=== PATIENT | female | born 1980 | race Caucasian/White ===

== ENCOUNTER 2016-05-26 06:00 | Inpatient (IN) | payer OTHER ==
[2016-05-26] MEDS ORDERED: LR 1,000 ML IV PRN (06:52)
[2016-05-26] MEDS ORDERED: EPSOM SALT 454 GM TP PRN (06:52)
[2016-05-26] MEDS ORDERED: MINERAL OIL 60 ML OIL TP PRN (06:52)
[2016-05-26] MEDS ORDERED: TERBUTALINE SULFATE 1 MG/ML VIAL IV PRN (06:52)
[2016-05-26] MEDS ORDERED: OXYTOCIN/RINGERS LACTATE 1,000 ML IV PRN (06:52)
[2016-05-26] MEDS ORDERED: LIDOCAINE 1% 30 ML SDV SC PRN (06:52)
[2016-05-26 07:06] LABS: % IMMATURE GRANULYOCYTES 0.7 % (0.0-1.1); ABSOLUTE IMMATURE GRANULOCYTES 0.05 10^3/uL (0.00-0.10); ADD DIFF? NO; ADD MORPH? NO; ADD SCAN? NO; ATYPICAL LYMPHOCYTE FLAG 10 (0-99); FRAGMENT RBC FLAG 0 (0-99); HEMATOCRIT 34.4 % (38.0-47.0); HEMOGLOBIN 11.8 g/dL (12.6-16.3); LEFT SHIFT FLG 0 (0-99); LIPEMIA HEMOLYSIS FLAG 90 (0-99); MEAN CELL HEMOGLOBIN 29.8 pg (27.9-34.1); MEAN CELL HEMOGLOBIN CONCENTR. 34.3 g/dL (32.4-36.7); MEAN CELL VOLUME 86.9 fL (81.5-99.8); MEAN PLATELET VOLUME 10.4 fL (8.7-11.7); PLATELET CLUMPS FLAG 10 (0-99); PLATELET COUNT 222 10^3/uL (150-400); RED BLOOD CELL COUNT 3.96 10^6/uL (4.18-5.33); RED CELL DISTRIBUTION WIDTH 13.9 % (11.5-15.2)
[2016-05-26] MEDS ORDERED: LIDOCAINE 1% 30 ML SDV ONE (07:20)
[2016-05-26] MEDS ORDERED: TERBUTALINE SULFATE 1 MG/ML VIAL ONE (07:21)
[2016-05-26] MEDS ORDERED: AMMONIA AROMATIC 1 EACH AMP IH ONE (07:21)
[2016-05-26] MEDS ORDERED: MISOPROSTOL 200 MCG TAB ONE (07:21)
[2016-05-26] MEDS ORDERED: OXYTOCIN 10 UNIT/ML VIAL ONE (07:21)
[2016-05-26] MEDS ORDERED: OXYTOCIN/LR *STANDARD DOSE PROTOCOL IV SCH (07:30)
[2016-05-26] MEDS ORDERED: fentaNYL 2MCG/ML/BUP 0.1% RTU 100 ML BAG EP ONE (09:31)
[2016-05-26] MEDS ORDERED: fentaNYL 100 MCG/2 ML INJ ONE (09:31)
[2016-05-26] MEDS ORDERED: BUPIVACAINE 0.25% 30 ML SDV ONE (09:32)
[2016-05-26] MEDS ORDERED: PHENYLEPHRINE HCL 100 MCG/ML SYR ONE (09:32)
--- NOTE | 2016-05-26 10:16 | OBPROG ---
OBG Progress Note Assessment/Plan: Assessment: 35 yo @ 39 2/7, elective IOL, comfortable. Plan: 05/26/16 10:15 FWB reassuring. GBS neg. Expect . Subjective: 35 yo @ 39 2/7, elective IOL, comfortable. Objective: 05/26/16 06:30 Patient ABO/Rh A POSITIVE 05/26/16 06:30 VSS - SVE Dilation (cm): 4 Effacement (%): 50 Station: -1 Current Contraction Pattern: Regular FHR (bpm): 130 FHR Pattern Variability: Moderate FHR Category: 2 Membranes: AROM Amniotic Fluid Color: Clear ICD10 Worksheet Patient Problems: Problems Problem Status Diagnosed Unstable lie of fetus Acute
[2016-05-26] MEDS ORDERED: LR 500 ML IV SCH (10:30)
--- NOTE | 2016-05-26 12:35 | OBPROG ---
OBG Progress Note Assessment/Plan: Assessment: 35 yo @ 39 2/7, elective IOL, comfortable. Plan: FWB reassuring. GBS neg. Expect . 05/26/16 12:34 Subjective: 35 yo @ 39 2/7, elective IOL, comfortable. Objective: 05/26/16 06:30 Patient ABO/Rh A POSITIVE 05/26/16 06:30 vss - SVE Dilation (cm): 7 Effacement (%): 75 Station: -1 Current Contraction Pattern: Regular FHR (bpm): 140 FHR Pattern Variability: Moderate FHR Category: 2 Membranes: AROM Amniotic Fluid Color: Clear ICD10 Worksheet Patient Problems: Problems Problem Status Diagnosed Unstable lie of fetus Acute
[2016-05-26] MEDS: IBUPROFEN 600 MG TAB PO PRN ×2 (15:27→21:02)
[2016-05-26] MEDS ORDERED: HYDROCORTISONE 0.5% CREAM TP PRN (16:23)
[2016-05-26] MEDS ORDERED: DOCUSATE SODIUM 100 MG CAP PO PRN (16:23)
[2016-05-26] MEDS ORDERED: SIMETHICONE 80 MG TAB CHEW PO PRN (16:23)
--- NOTE | 2016-05-26 16:26 | OBPROC ---
- Labor and Delivery Onset of Contractions Date: 05/26/16 Onset of Contractions Time: 08:00 Onset of Contractions Type: Induced Rupture of Membranes Date: 05/26/16 Rupture of Membranes Time: 08:45 Rupture of Membranes Type: Artificial Amniotic Fluid Color: Clear Dilation Complete Time: 14:30 Delivery Type: Spontaneous Placenta Delivery Date: 05/26/16 Episiotomy/Laceration: 2nd Degree Repair: 3-0, Vicryl EBL: 200 ml Complications: None - Medications Labor Augmentation/Induction Meds Used: Pitocin Anesthesia: Epidural - Info Infant A Delivery Date: 05/26/16 Delivery Time: 14:49 Sex of : Female Score (1 Min): 9 Score (5 Min): 9
[2016-05-26] MEDS: HYDROCODONE/APAP 5/325 TAB PO PRN (22:18)
[2016-05-27] MEDS: HYDROCODONE/APAP 5/325 TAB PO PRN ×2 (03:42→08:04)
[2016-05-27] MEDS: IBUPROFEN 600 MG TAB PO PRN ×2 (08:04→15:12)
[2016-05-27 08:06] VITALS: BP 116/72; PULSE 64; RESP 16; TEMP 98.1; O2SAT 96
--- NOTE | 2016-05-27 08:33 | OBPROG ---
OBG Progress Note Assessment/Plan: Assessment: Pt is a 35 y/o female PPD#1 s/p - doing well and stable for discharge Plan: Discharge home (desired) A+, [place] F/U in 6 weeks or sooner prn RX for motrin and norco given. Pain/bleeding/fever precautions reviewed 05/27/16 08:31 Subjective: No complaints, feels great, lochia diminishing, pain controlled with motrin, desires to go home. Colostrum coming in well. Objective: 05/26/16 06:30 Patient ABO/Rh A POSITIVE 05/26/16 06:30 Temp Pulse Resp BP Pulse Ox 36.7 C 64 16 116/72 96 05/27/16 08:00 05/27/16 08:00 05/27/16 08:00 05/27/16 08:00 05/27/16 08:00 Uterine Position/Fundal Height: Umbilicus -1 Uterine Tone: Firm ICD10 Worksheet Patient Problems: Problems Problem Status Diagnosed (spontaneous vaginal delivery) Acute Unstable lie of fetus Acute - ICD10 Problem Qualifiers (1) (spontaneous vaginal delivery)
== END 2016-05-27 15:45 | disposition home or self-care (01) | DRG 775 ==
LOC: FLD 06:00 → FOB 17:03
PROVIDERS: ADMIT Midwife; ATTEND Obstetrics & Gynecology
PROC: 0KQM0ZZ Repair Perineum Muscle, Open Approach (ICD-10-PCS; principal; 2016-05-26)
PROC: 10E0XZZ Delivery of Products of Conception, External Approach (ICD-10-PCS; principal; 2016-05-26)
PROC: 10907ZC Drainage of Amniotic Fluid, Therapeutic from Products of Conception, Via Natural or Artificial Opening (ICD-10-PCS; principal; 2016-05-26)
DX: O70.1 Second degree perineal laceration during delivery (principal); O62.2 Other uterine inertia; Z3A.39 39 weeks gestation of pregnancy; Z37.0 Single live birth
CPT/HCPCS: J2370; J2590; J3010; J3105

== ENCOUNTER 2018-02-27 22:41 | Emergency (ER) | payer OTHER ==
[2018-02-27] MEDS ORDERED: KETOROLAC 15 MG/1 ML SDV IVP ONE (22:56)
[2018-02-27] MEDS ORDERED: NS 1,000 ML IV ONE ×2 (22:56→23:44)
[2018-02-27] MEDS ORDERED: FAMOTIDINE 20 MG/NACL 50 ML IV ONE (22:57)
--- NOTE | 2018-02-27 22:57 | EDPHY ---
H & P Stated Complaint: upper abd pain with diarrhea for 2 days just got back from [place] Time Seen by Provider: 02/27/18 22:47 HPI/ROS: Chief Complaint: Abdominal pain, diarrhea HPI: 37-year-old woman who recent return from a trip to [place]. For the last 2 days she has been having abdominal pain with multiple episodes of watery diarrhea. Tonight she had worsening epigastric abdominal pain which is crampy in nature. About a 8/10. No nausea or vomiting. She did notice tonight for the 1st time that she had blood in her diarrhea. No fevers or chills. No lightheadedness or fainting. She is not taking any medications. She is able to tolerate fluids. She multiple episodes of watery diarrhea per day. She is not know last menstrual. And she has a IUD in place. No urinary urgency or frequency. ROS: 10 systems were reviewed and were negative except those elements noted in the HPI. PMH: Attention deficit hyperactivity disorder Social History: No smoking, occasional alcohol, no recreational drug use Family History: non-contributory Physical Exam: Gen: Awake, Alert, No Distress HEENT: Nose: no rhinorrhea Eyes: PERRLA, EOMI Mouth: Moist mucosa Neck: Supple, no JVD Chest: nontender, lungs clear to auscultation Heart: S1, S2 normal, no murmur Abd: Soft, mild epigastric tenderness, no guarding Back: no CVA tenderness, no midline tenderness Ext: no edema, non-tender Skin: no rash Neuro: CN II-XII intact, Sensation grossly intact, Strength 5/5 in bilateral upper and lower extremities - Personal History LMP (Females 10-55): IUD In Place Current Tetanus/Diphtheria Vaccine: Yes Current Tetanus Diphtheria and Acellular Pertussis (TDAP): Yes Tetanus Vaccine Date: 06/2014 - Medical/Surgical History Hx Asthma: No Hx Chronic Respiratory Disease: No Hx Diabetes: No Hx Cardiac Disease: No Hx Renal Disease: No Hx Cirrhosis: No Hx Alcoholism: No Hx HIV/AIDS: No Hx Splenectomy or Spleen Trauma: No Other PMH: IUI x 3 to become , h/o wisdom teeth, spontaneous with 2nd - Social History Smoking Status: Never smoked Constitutional: Initial Vital Signs Temperature (C) 36.3 C 02/27/18 22:43 Heart Rate 77 02/27/18 22:43 Respiratory Rate 16 02/27/18 22:43 Blood Pressure 123/79 H 02/27/18 22:43 O2 Sat (%) 100 02/27/18 22:43 O2 Delivery Mode Room Air Allergies/Adverse Reactions: No Known Allergies Allergy (Verified 02/27/18 22:45) Home Medications: Medication Instructions Recorded Adderall 10 MG (*) 02/27/18 Ciprofloxacin [Cipro] 500 mg PO BID #6 tab 02/27/18 Hyoscyamine Sulfate [Levsin] 0.25 mg PO Q4 PRN #10 tablet 02/27/18 Medical Decision Making ED Course/Re-evaluation: Patient's symptoms are improved after Pepcid, Toradol and IV fluids. Laboratory evaluations are unremarkable. Abdomen is soft and benign. Symptoms consistent with traveler's diarrhea. Plan will be to start her on Levsin and Cipro for 3 days. Follow up with primary care physician. - Data Points Laboratory Results: Laboratory Results 02/27/18 23:00 02/27/18 23:00 02/27/18 02/27/18 02/27/18 23:00 23:00 23:00 WBC 9.85 10^3/uL H 10^3/uL (3.80-9.50) RBC 4.48 10^6/uL 10^6/uL (4.18-5.33) Hgb 13.5 g/dL g/dL (12.6-16.3) Hct 39.3 % % (38.0-47.0) MCV 87.7 fL fL (81.5-99.8) MCH 30.1 pg pg (27.9-34.1) MCHC 34.4 g/dL g/dL (32.4-36.7) RDW 13.0 % % (11.5-15.2) Plt Count 204 10^3/uL 10^3/uL (150-400) MPV 9.9 fL fL (8.7-11.7) Neut % (Auto) 78.6 % H % (39.3-74.2) Lymph % (Auto) 14.5 % L % (15.0-45.0) [place] % (Auto) 5.3 % % (4.5-13.0) Eos % (Auto) 1.2 % % (0.6-7.6) Baso % (Auto) 0.1 % L % (0.3-1.7) Nucleat RBC Rel Count 0.0 % % (0.0-0.2) Absolute Neuts (auto) 7.74 10^3/uL H 10^3/uL (1.70-6.50) Absolute Lymphs (auto) 1.43 10^3/uL 10^3/uL (1.00-3.00) Absolute Monos (auto) 0.52 10^3/uL 10^3/uL (0.30-0.80) Absolute Eos (auto) 0.12 10^3/uL 10^3/uL (0.03-0.40) Absolute Basos (auto) 0.01 10^3/uL L 10^3/uL (0.02-0.10) Absolute Nucleated RBC 0.00 10^3/uL 10^3/uL (0-0.01) Immature Gran % 0.3 % % (0.0-1.1) Immature Gran # 0.03 10^3/uL 10^3/uL (0.00-0.10) RBC/WBC/PLT Morphology TNP Platelet Estimate TNP Sodium 135 mEq/L mEq/L (135-145) Potassium 3.9 mEq/L mEq/L (3.3-5.0) Chloride 100 mEq/L mEq/L (97-110) Carbon Dioxide 24 mEq/l mEq/l (22-31) Anion Gap 11 mEq/L mEq/L (6-14) BUN 10 mg/dL mg/dL (7-23) Creatinine 0.7 mg/dL mg/dL (0.6-1.0) Estimated GFR > 60 Glucose 102 mg/dL H mg/dL (70-100) Calcium 9.3 mg/dL mg/dL (8.5-10.4) Total Bilirubin 0.6 mg/dL mg/dL (0.1-1.4) AST 20 IU/L IU/L (14-46) ALT 28 IU/L IU/L (9-52) Alkaline Phosphatase 48 IU/L IU/L (38-126) Total Protein 7.2 g/dL g/dL (6.3-8.2) Albumin 4.4 g/dL g/dL (3.5-5.0) Lipase 89 IU/L IU/L (23-300) Beta HCG, Qual NEGATIVE Medications Given: Discontinued Medications Sodium Chloride (Ns) 1,000 mls @ 0 mls/hr IV ONCE ONE; Wide Open PRN Reason: Protocol Stop: 02/27/18 22:57 Last Admin: 02/27/18 23:03 Dose: 1,000 mls Famotidine/Sodium Chloride (Pepcid 20 Mg (Premix)) 50 mls @ 200 mls/hr IV EDNOW ONE Stop: 02/27/18 23:11 Last Admin: 02/27/18 23:15 Dose: 50 mls Sodium Chloride (Ns) 1,000 mls @ 0 mls/hr IV ONCE ONE; Wide Open PRN Reason: Protocol Stop: 02/27/18 23:45 Last Admin: 02/27/18 23:47 Dose: 1,000 mls Ketorolac Tromethamine (Toradol) 15 mg IVP EDNOW ONE Stop: 02/27/18 22:57 Last Admin: 02/27/18 23:13 Dose: 15 mg Departure - Departure Disposition: Home, Routine, Self-Care Clinical Impression: Travelers' diarrhea Condition: Good Instructions: Traveler's Diarrhea (ED), Ciprofloxacin (By mouth) Additional Instructions: Make sure to drink plenty of liquids, avoid caffeine and dairy. May take Levsin as needed for abdominal cramping. Please take your full course of antibiotics. Follow up with primary care physician in 2-3 days if symptoms are not improving. Return to the emergency department for uncontrolled abdominal pain, lightheadedness, fainting, high fever, or any other concerns. Referrals: NONE *PRIMARY CARE P,. [Primary Care Provider] - As per Instructions Prescriptions: Ciprofloxacin [Cipro] 500 mg PO BID #6 tab Hyoscyamine Sulfate [Levsin] 0.25 mg PO Q4 PRN #10 tablet PRN Reason: Pain, Moderate
[2018-02-27 23:10] LABS: PLATELET COUNT 204 10^3/uL (150-400)
[2018-02-28] MEDS ORDERED: CIPROFLOXACIN 500MG PREPACK#2 BTL TAKEHOME ONE (00:32)
[2018-02-28 01:06] VITALS: BP 117/79
== END 2018-02-28 01:06 | disposition home or self-care (01) ==
DX: R19.7 Diarrhea, unspecified (principal); E86.9 Volume depletion, unspecified
CPT/HCPCS: 96365; J1885